=== PATIENT | female | born 1960 | race Caucasian/White ===

== ENCOUNTER → 2016-09-24 09:59 | Day surgery (SDC) | payer BC ==
[~2016-09-24 09:59] MED LIST: Acetaminophen ADULT LIQ* 650 MG/20.3 ML UDC ONE; Buffered Lidocaine 1% SYRIN* 3 ML/SYR SYRINGE INTRADERM ONE; Dexamethasone IV* 4 MG/ML 1 ML (4 MG) ONE; DiMENhydriNATE IV* 50 MG/ML VIAL IV PUSH PRN; Lidocaine 1% MPF wEPI 200,000* 30 ML SDV ONE; Lidocaine 2% PF* 5 ML VIAL ONE; Lidocaine 2% W/EPI 1:100,000* 20 ML MDV ONE; Lidocaine 4% TOPICAL* 50 ML TOP.SOLN ONE; Ondansetron INJ* 2 MG/ML VIAL ONE; Oxymetazoline 0.05% NASAL SPR* 15 ML BTL ONE; Propofol* 10 MG/ML 20 ML BTL IV PUSH ONE; fentaNYL* 50 MCG/ML 2 ML VIAL (100 MCG VIAL) IV PRN; fentaNYL* 50 MCG/ML 2 ML VIAL (100 MCG VIAL) ONE
[2016-09-24 14:35] VITALS: BP 126/77
--- NOTE | 2016-09-25 02:49 | OP ---
DATE OF OPERATION: 09/24/16 - [facility] DATE OF : 58 SURGEON: Parag Oenal MD ANESTHESIOLOGIST: Alexander Sim MD ANESTHESIA: General laryngeal mask airway anesthesia. PRE-OP DIAGNOSIS: Chronic pansinusitis. POST-OP DIAGNOSIS: Chronic pansinusitis. OPERATIVE PROCEDURE: Bilateral functional endoscopic sinus surgery with frontal sinusotomy, maxillary antrostomy and anterior ethmoidectomy. COMPLICATIONS: None. DISPOSITION: Good. SPECIMENS: None. BLOOD LOSS: Minimal. DESCRIPTION OF PROCEDURE: The patient was taken to the operating room, placed in supine position on the operating table, maintained with laryngeal mask airway anesthesia. Nose packed bilaterally with cottonoids impregnated with oxymetazoline and 4% lidocaine. She was turned and draped for the surgery. Using the endoscopes, I injected the middle turbinate, lateral wall, anterior ethmoid and uncinate process with 2% lidocaine with 1:100,000 epinephrine. The middle turbinates were medialized. She was repacked, removed. I initially used the balloon to cannulate the frontal sinus duct and saw the light reflecting to the forehead and used the balloon dilation. I think I got a pre- dilation on the right and a full dilation on the left. The seeker was used find the ostia in the maxillary sinus. The middle turbinate was medialized. The back bitter was used to make a low cut and the middle turbinate was debrided and some thickened tissue around the maxillary ostium was debrided. The curette was used to enter the anterior ethmoid and then the was debrided. Hemostasis was ensured. Stammberger sinus foam was placed lateral to the middle turbinate, this was done bilaterally. The patient tolerated procedures well, no complications, transferred to the recovery room in stable condition. [id number]/CPS #: [id number] MTDD
== END | disposition home or self-care (01) ==
LOC: OR 09:59
PROVIDERS: ATTEND Otolaryngology
DX: J32.4 Chronic pansinusitis (principal); Z87.891 Personal history of nicotine dependence
CPT/HCPCS: A9270-GY; J1100; J2001; J2405; J2704; J3010

== ENCOUNTER 2017-08-04 06:03 | Inpatient (IN) | payer BC ==
[~2017-08-04 06:03] MED LIST changes: -Acetaminophen ADULT LIQ* 650 MG/20.3 ML UDC ONE; +Buffered Lidocaine 0.9% SYRIN* 5 ML/SYR SYRINGE INTRADERM ONE; -Buffered Lidocaine 1% SYRIN* 3 ML/SYR SYRINGE INTRADERM ONE; -Dexamethasone IV* 4 MG/ML 1 ML (4 MG) ONE; -DiMENhydriNATE IV* 50 MG/ML VIAL IV PUSH PRN; -Lidocaine 1% MPF wEPI 200,000* 30 ML SDV ONE; -Lidocaine 2% PF* 5 ML VIAL ONE; -Lidocaine 2% W/EPI 1:100,000* 20 ML MDV ONE; -Lidocaine 4% TOPICAL* 50 ML TOP.SOLN ONE; -Ondansetron INJ* 2 MG/ML VIAL ONE; -Oxymetazoline 0.05% NASAL SPR* 15 ML BTL ONE; -Propofol* 10 MG/ML 20 ML BTL IV PUSH ONE; -fentaNYL* 50 MCG/ML 2 ML VIAL (100 MCG VIAL) IV PRN; -fentaNYL* 50 MCG/ML 2 ML VIAL (100 MCG VIAL) ONE
--- OUTSIDE RECORDS SUMMARY | 2017-08-04 06:08 | XMS REPORT ---
:1960 External Reference #:[id number] Author Organization [employer] Address [address] [place] [address] Phone [phone] Care Team Providers Name Role Phone Teri Andre MD Primary Care Physician Unavailable Payers Type Date Identification Numbers Payment Provider Subscriber Commercial Effective: Policy Number: BS Emilie Bingham 2013 [id number] PayID: [id number] [address] [address] [place] [address] Medigap Part B Effective: 2009 Policy Number: BS Emilie Bingham [id number] Expires: 2013 PayID: [id number] [address] [address] [place] [address] Problems Date Description Provider Status Onset: 07/15/2017 Lumbar spondylolisthesis Ligia Jarquin MD Active Onset: 07/15/2017 Lumbosacral spondylosis without Ligia Jarquin MD Active myelopathy Family History Date Family Member(s) Problem(s) Comments General Diabetes General Heart Disease Father Diabetes Mother Heart Disease Siblings 8 3 alive Social History Type Date Description Comments Marital Status Single Lives With She lives with two grandchildren, her daughter and son-in-law Occupation She works as an [employer] at [employer]. Work Status Currently Working ETOH Use Occasionally consumes alcohol Smoking Patient is a former smoker Recreational Drug Use Denies Drug Use Daily Caffeine Consumes on average 2 cups of regular coffee per day Exercise Type/Frequency Does not exercise Allergies, Adverse Reactions, Alerts Date Description Reaction Status Severity Comments 07/17/2013 Trazodone nightmares, hypnotic active per PCP note hallucsns 06/22/2017 Acetaminophen / nausea, loopy active per PCP note Hydrocodone 06/22/2017 Codeine nausea, loopy active per PCP note 06/22/2017 Oxycodone nausea, loopy active per PCP note 06/22/2017 Percocet nausea, loopy active per PCP note 06/22/2017 Polymyxin B / itchy, painful, red active poer PCP note Trimethoprim eyes 06/23/2017 Wool active 06/23/2017 Adhesives active Medications Medication Date Status Form Strength Qnty SIG Indications Ordering Provider Ibuprofen Active 800mg 1 by mouth Unknown /0000 three times per day Leflunomide Active 10mg 2 tablet Unknown /0000 daily Prednisone Active 10mg 1-2 Unknown /0000 tablets prn Meclizine HCL Active Tablets 12.5mg 12tab 1 tablet Unknown /0000 s every 4h prn dizziness Prochlorperazine Active Tablets 10mg 30tab 1 q6h as Unknown Maleate /0000 s needed Valtrex Active Tablets 1gm 21tab 2 tablets Unknown /0000 s orally 3x a day prn Hydroxychloroquin Active Tablets 200mg 180ta 2 tablets Unknown e /0000 bs a day Lysine Active Tablets 1000mg 1-3 Unknown /0000 tablets every day prn Cyclobenzaprine Active Tablets 10mg 30tab one po tid Unknown HCL /0000 s prn spasm Mometasone Active Suspension 50mcg/Act take 2 Unknown Furoate /0000 sprays per nostril as needed for nasal congestion Clindamycin HCL Active Capsules 300mg 1 tabs by Unknown /0000 mouth 3 times a day Proair HFA Active Aerosol 108(90Bas 2 puffs by Unknown /0000 e) mouth mcg/Act every 4 hours as needed Benadryl Allergy Active Capsules 25mg 1 by mouth Unknown /0000 at bedtime as needed for sleep Acetaminophen ER Active Tablets ER 650mg 1 tab by Unknown /0000 mouth q4 hours as needed pain Glucosamine Active Capsules 1000mg 1 caps qd Unknown /0000 Percocet 08/21 Hx Tablets 5-325mg 60tab take 1-2 /2013 s tabs po Young, - q4-6 hours M.D. 05/31 prn pain /2017 Plaquenil Hx Unknown /0000 - 08/21 Compazine Hx Unknown - 08/21 Flexeril Hx Unknown / - 08/21 Tylenol Hx Unknown / - 08/21 Chlorophyll Hx Tablets 3-0.6mg 2 tablets Unknown orally - with meal 06/01 Medications Administered in Office Medication Date Status Form Strength Qnty SIG Indications Ordering Provider Inj, Administered Injection Clifton S. Regadenoson, 017 Larson, 0.1 MG FACC Technetium TC Administered Injection Clifton S. 99M 017 Larson, DO Tetrofosmin, FACC Per Unit Dose Up To 40 Millicuries Vital Signs Date Vital Result Comment 07/15/2017 Height 63 inches 5'3" Weight 186.00 lb BP Systolic Sitting 158 mmHg BP Diastolic Sitting 80 mmHg Pain Level 3 BMI (Body Mass Index) 32.9 kg/m2 12/27/2013 Height 63 inches 5'3" Weight 170.00 lb Heart Rate 68 /min BP Systolic 116 mmHg BP Diastolic 78 mmHg BMI (Body Mass Index) 30.1 kg/m2 11/22/2013 Height 63 inches 5'3" Weight 170.00 lb Heart Rate 74 /min BP Systolic 132 mmHg BP Diastolic 83 mmHg Pain Level 3 BMI (Body Mass Index) 30.1 kg/m2 10/11/2013 Height 63 inches 5'3" Weight 170.00 lb Body Temperature 96.9 F BMI (Body Mass Index) 30.1 kg/m2 09/11/2013 Height 63 inches 5'3" Weight 172.00 lb Heart Rate 75 /min BP Systolic 117 mmHg BP Diastolic 80 mmHg BMI (Body Mass Index) 30.5 kg/m2 08/21/2013 Height 63 inches 5'3" Weight 172.00 lb Heart Rate 72 /min BP Systolic 129 mmHg BP Diastolic 92 mmHg BMI (Body Mass Index) 30.5 kg/m2 06/21/2013 Height 63 inches 5'3" Weight 176.00 lb Heart Rate 80 /min BP Systolic 149 mmHg BP Diastolic 93 mmHg BMI (Body Mass Index) 31.2 kg/m2 Results Test Date Test Result H/L Range Note Surgical Pathology 08/31/2013 S RUN DATE: 09/04/ <SEE NOTE> 1 1 RUN DATE: 09/04/13 [facility] LAB LIVE PAGE 1 RUN TIME: [address] [place] [id number] Specimen Inquiry Name: LIUDMILA BINGHAM : [address]: Grabiel Roberts MD Acct: [id number] Unit: [id number] AGE: 53 Location: OR Re08/31/13 SEX: F [place] [facility] [place]: [id number] [place]ER[place]: 08/31/13- [facility] DR: Grabiel Roberts MD REQ: [id number] RECD: 08/31/13 STATUS: SOUT _ ORDERED: LEVEL III FINAL DIAGNOSIS Distal biceps sheath left arm, excision: Synovial tissue with acute and chronic inflammation and marked fibrosis with neovascularization. PRE-OPERATIVE DIAGNOSIS Ruptured biceps tendon left elbow. GROSS DESCRIPTION The specimen is received in formalin labeled Liudmila Roberts, Distal Biceps Sheath Left Arm, and consists of two kay-ferrer, irregular rubbery portions of tissue with scant attached fat measuring 1.1 x 0.8 x 0.5 cm. and 1.5 x 0.9 x 0.7 cm. Submitted entirely, one cassette. Signed (signature on file) Herbert Pruitt MD 1516 END OF REPORT * ML=Testing performed at Main Lab DEPARTMENT OF PATHOLOGY, [address] [place] [address] Herbert Pruitt M.D. Director [facility] Permit #[id number] Procedures Date CPT Code Description Status 06/23/2017 57752 Stress Test Completed 06/23/2017 26180 Myocardial Perfusion Imaging Tomographic (Spect) Completed Multiple Studies 08/31/2013 44496 reinsertion ruptured biceps or triceps tendon,distal Completed with or w/o 08/31/2013 06243 reinsertion ruptured biceps or triceps tendon,distal Completed with or w/o 08/31/2013 72537 reinsertion ruptured biceps or triceps tendon,distal Completed with or w/o 06/21/2013 18301 Rad Exam; Hip Unilat Completed 06/21/2013 25682 Rad Exam; Pelvis Completed 05/25/2012 82914 Polysomnography Sleep Staging 4+ Parameters W/Cpap Completed 04/23/2012 83497 Polysomnography Sleep Staging 4+ Parameters Completed 06/03/2010 40597 Carpal Tunnel Release Completed 06/03/2010 02555 Carpal Tunnel Release Completed Encounters Type Date Location Provider CPT E/M Dx Office Visit 12/27/2013 8:[facility] M.D. 49103 727.62 C.[facility]. Office Visit 07/17/2013 8:00a [facility] M.D. 90111 727.62 C.M.A. Office Visit 06/21/2013 10:45a [facility] M.D. 77083 720.2 C.M.A. 719.42 Office Visit 05/29/2010 10:00a [facility] [place], [address] 354.0 Of CMauraML[facility] Fernando Gillis Plan of Care Future Appointment(s):07/25/2017 2:00 pm - [facility] Schedule at [facility]07/15/2017 - Jossesilfahad Jarquin, MDM47.26 Other spondylosis with radiculopathy, lumbar qkcveeW73.16 Spondylolisthesis, lumbar regionFollow up:RV one week postop. Please obtain F/E prior to booking surgery and confirm with me. Patient should have medical clearance and specific instructions from PCP regarding RA medications
[2017-08-04] MEDS ORDERED: ceFAZolin 2 GM PREMIX (*) 2 GM/50 ML BAG IVPB ONE (06:34)
[2017-08-04] MEDS ORDERED: Buffered Lidocaine 0.9% SYRIN* 5 ML/SYR SYRINGE ONE (06:34)
[2017-08-04] MEDS ORDERED: Lidocaine 1% MPF wEPI 200,000* 30 ML SDV ONE ×2 (06:55→07:03)
[2017-08-04] MEDS ORDERED: Thrombin 5,000 UNITS* 1 APPLIC KIT - topical use - TOPICAL ONE (06:55)
[2017-08-04] MEDS ORDERED: Bacitracin IV* 50,000 UNITS INJ ONE ×2 (06:56→11:03)
[2017-08-04] MEDS ORDERED: fentaNYL* 50 MCG/ML 5 ML VIAL (250 MCG VIAL) ONE (07:52)
[2017-08-04] MEDS ORDERED: Midazolam* 1 MG/ML 2 ML VIAL (2 MG) ONE (07:52)
[2017-08-04] MEDS ORDERED: Dexamethasone IV* 4 MG/ML 1 ML (4 MG) ONE (07:57)
[2017-08-04] MEDS ORDERED: Lidocaine 2% PF * 5 ML VIAL ONE (07:57)
[2017-08-04] MEDS ORDERED: Scopolamine 1.5 mg* PATCH ONE (07:57)
[2017-08-04] MEDS ORDERED: Propofol* 10 MG/ML 20 ML BTL IV PUSH ONE (07:57)
[2017-08-04] MEDS ORDERED: Artificial Tear OPHTH.OINT* 3.5 GM ONE (08:10)
[2017-08-04] MEDS ORDERED: EPHEDrine (Pressors)* 50 MG/ML VIAL ONE (08:31)
[2017-08-04] MEDS ORDERED: Naloxone* 0.4 MG/ML 1 ML VIAL IV PRN (10:00)
[2017-08-04] MEDS ORDERED: HYDROcodone/ACETAMIN 5-325 MG* 1 TAB PO PRN (10:00)
[2017-08-04] MEDS ORDERED: DiMENhydriNATE IV* 50 MG/ML VIAL IV PUSH PRN (10:00)
[2017-08-04] MEDS ORDERED: ceFAZolin 1 GM in Dextrose (*) 2 GM/100 ML BAG IVPB ONE (11:43)
[2017-08-04] MEDS ORDERED: Ondansetron INJ* 2 MG/ML VIAL ONE (12:14)
[2017-08-04] MEDS ORDERED: fentaNYL* 50 MCG/ML 2 ML VIAL (100 MCG VIAL) ONE ×2 (12:56→14:46)
[2017-08-04] MEDS ORDERED: DiMENhydriNATE IV* 50 MG/ML VIAL ONE (13:00)
[2017-08-04] MEDS: fentaNYL* 50 MCG/ML 2 ML VIAL (100 MCG VIAL) IV PRN ×3 (13:06→14:46)
[2017-08-04] MEDS ORDERED: HYDROmorphone INJ* 2 MG/ML CARPUJECT SYRINGE ONE (13:37)
--- NOTE | 2017-08-04 13:51 | RAD ---
INDICATION: Left L4-L5 fusion and resection of synovial cyst COMPARISONS: May 04, 2017 TECHNIQUE: Planar and conebeam fluoroscopy was provided for a surgical procedure. Total fluoroscopy time is: 11.2 seconds. The total DLP is 1318.17 FINDINGS: Spot images demonstrate fusion hardware at L4-L5. Tomographic images demonstrate fusion hardware at L4-L5 with graft harvesting of the right iliac wing. A laminectomy defect is noted. IMPRESSION: FLUOROSCOPY WAS PROVIDED FOR A SURGICAL PROCEDURE CPT II Codes: 6045F
--- NOTE | 2017-08-04 13:53 | RAD ---
INDICATION: Lumbar spine surgery. COMPARISON: July 22, 2017 TECHNIQUE: 33.3 seconds fluoroscopy. FINDINGS: Spot images document anterior and posterior L4-L5 fusion. IMPRESSION: Procedural fluoroscopy. CPT II Codes: 6045F
[2017-08-04] MEDS: HYDROmorphone INJ* 1 MG/ML CARPUJECT SYRINGE IV PRN ×5 (13:54→14:41)
[2017-08-04] MEDS: Cyclobenzaprine TAB* 10 MG PO PRN ×2 (14:52→23:49)
[2017-08-04] MEDS ORDERED: Prochlorperazine TAB* 10 MG PO PRN (16:22)
[2017-08-04] MEDS: HYDROcodone/ACETAMIN 5-325 MG* 1 TAB PO PRN ×2 (17:08→22:49)
[2017-08-05] MEDS: Morphine INJ* 2 MG/ML 1 ML CARPUJECT IV PRN ×4 (03:10→20:46)
[2017-08-05] MEDS: HYDROcodone/ACETAMIN 5-325 MG* 1 TAB PO PRN ×4 (05:14→18:19)
[2017-08-05] MEDS: Hydroxychloroquine TAB* 200 MG PO SCH ×2 (07:54→07:57)
[2017-08-05] MEDS: Cyclobenzaprine TAB* 10 MG PO PRN ×2 (07:54→23:38)
--- NOTE | 2017-08-05 08:31 | PN ---
Progress Note - Progress Note Date of Service: 08/05/17 SOAP: Subjective: [S/p L4-5 MIS TLIF left and excision of synovial cyst and L4-5 pedicle screws. POD #1. Feeling well this morning, complains of low back soreness. Left lower extremity pain improved. Eating and drinking without difficulty. Denies headache, nausea and vomiting.] Objective: [ Vital Signs: Temp Pulse Resp BP Pulse Ox 97.5 F 73 20 128/67 100 08/05/17 03:58 08/05/17 03:58 08/05/17 08:15 08/05/17 03:58 08/05/17 03:58 General: Alert and oriented. No distress. Sitting up in bed. Neuro: Motor and sensory intact. Incision: Intact and without swelling. ] Assessment: [Satisfactory post-op course. ] Plan: [1. Discharge home today. 2. Discharge instructions discussed with the patient. ]
--- NOTE | 2017-08-05 10:25 | RAD ---
Indication: Postop L4-L5 fusion August 04, 2017. Comparison: July 22, 2017 Technique: Standing AP and lateral views lumbar sacral spine. Report: Post anterior and posterior L4-L5 fusion. Bone graft metallic markers at the disc space and posterior paired spinal rods and pedicle screws in place. Minimal grade 1 L4-L5 anterolisthesis without significant change. Negative for fracture. Unremarkable paraspinal soft tissue contours. Gallbladder fossa level surgical clips. IMPRESSION: Postsurgical change of anterior and posterior L4-L5 fusion without suspicious finding.
[2017-08-06] MEDS: HYDROcodone/ACETAMIN 5-325 MG* 1 TAB PO PRN ×5 (00:29→21:52)
--- NOTE | 2017-08-06 02:32 | OP ---
DATE OF OPERATION: 08/04/17 - ROOM #333 DATE OF : 58. SURGEON: Ligia Jarquin MD. SUPPORTIVE EMPLOYMENT CASE MANAGER: KEILY Pacheco. ANESTHESIA: General. PRE-OP DIAGNOSES: Degenerative disease, L4-5 and synovial cyst. POST-OPERATIVE DIAGNOSES: Degenerative disease, L4-5 and synovial cyst. OPERATIVE PROCEDURE: The patient underwent left L4-5 minimally invasive transforaminal lumbar interbody fusion with resection of synovial cyst and placement of instrumentation at L4-L5 pedicle screws as well as PEEK interbody spacer, with autologous bone graft from the iliac crest, as well as local bone graft and DBX. Iliac crest bone graft was harvested through a separate skin incision and intraoperative 3D navigation was used. ESTIMATED BLOOD LOSS: 75 cc. COMPLICATIONS: None. SUMMARY: The patient is a very pleasant 57-year-old female with history of rheumatoid arthritis with complaints of severe pain radiating to the left lower extremity. The patient had MRI findings consistent with degenerative disk disease at L4-5 with left lateral synovial cyst at the same level, as well as stenosis. After failing conservative treatment modalities, the patient was offered the option of surgical intervention in the form of left L4-5 TLIF. After all expectations, limitations, possible complications of the procedure had been explained in details with the patient and her significant other with complications included but not limited to bleeding, infection, risk of injury to adjacent structures, coma, paralysis, , need for additional procedures, anesthesia risk, stroke, blindness, cancer, instability, hardware failure, adjacent level disease, pseudoarthrosis, proximal junctional kyphosis, spinal fluid leak, the patient and her significant other were agreeable to proceeding with surgery. Informed consent was obtained. The patient understood that her condition may not improve and in fact may get worse after the surgery and that she may need to have additional procedures in the future. She also understood that the operative plan may be modified according to intraoperative findings and condition. The patient was on immunosuppressive medication, which she elected not to discontinue after recommendation of the primary physician. We had an extended discussion with the patient regarding risks and benefits of continuing preoperatively her biological agents. The patient understood that she may be at high risk for surgical complications such as wound infections, but she elected to continue with the use of her RA medication. DESCRIPTION OF PROCEDURE: The patient was brought to the operating room and was placed under general anesthesia by the anesthesia team. She was carefully positioned prone on the Khadar table and all bony prominences were meticulously padded. Her skin was prepped and draped in a sterile fashion. After appropriate surgical pause and patient identification, a small incision over the right iliac crest was performed with #10 surgical blade. After infiltrating the skin with local anesthetic, a Corex trocar was inserted and iliac crest bone graft was harvested. Through the same skin incision, navigation star was inserted and secured in place. Intraoperative CT imaging was performed with the O-arm and the patient data was transferred to the navigation platform. The projection of the L4- 5 disk space on the skin was marked and after infiltrating the skin with local anesthetic, the skin incision was made with a #10 surgical blade. Over a series of dilators, the METRx tubular retractor was introduced into the field and it was docked over the left L4-5 facet and the lamina-spinous process junction. An intraoperative microscope was brought into the field and after removing a small amount of residual paraspinous musculature, lamina of left at L4 as well as the medial L4- 5 facet was easily identified. A high-speed drill as well as Kerrison punches were used to fashion a hemilaminectomy with facetectomy. Local bone was saved for use in the arthrodesis part of the procedure. The ligamentum flavum was gently reflected and it was found to be strictly adherent with a left synovial cyst as expected from the preoperative MRI. The margins of normal dura were gently identified cephalad and caudal of the lesion and a plane developed between the thecal sac and the synovial cyst. The synovial cyst was then removed in its entirety without need for piecemeal resection and was sent for pathology evaluation. The epidural space was gently prepared and after retracting medially the thecal sac and performing generous foraminotomy, a #15 surgical blade was used to incise the dorsal aspect of the annulus fibrosis. A standard diskectomy was performed with a series of pituitary rongeurs while the disk space was prepared for the fusion part with the use of pituitary rongeurs, disk scrapers, dilators, as well as curettes. After appropriate trialing of the disk space, a 12 x 26 mm Capstone PTC PEEK interbody spacer was inserted after being filled with iliac crest bone graft, DBX, and autograft from the locally harvested bone during the laminectomy and medial facetectomy. Prior to insertion of the interbody spacer, this space was filled with DBX and local autograft. Intraoperative OArm imaging was then obtained and revealed excellent placement of the implant. Under stereotactic navigation and fluoroscopic confirmation, the trajectory of the pedicles were marked on the skin and the skin was incised on the right side. With a #10 surgical blade, I infiltrated the skin with local anesthetic. A navigated drill guide was then used in order to cannulate the pedicles with the use of high torque drill Triton. [employer] instrumentation was used to insert 6.5 x 45 mm Medtronic pedicle screws at L4 and L5 pedicles and two 40 mm rods were inserted through the same incisions and secured with screw head caps. Intraoperative CT confirmed excellent placement of all hardware. After removal of the screw towers and navigation pin, fluoroscopic imaging confirmed excellent placement of all hardware. The wounds were then copiously irrigated and after meticulous hemostasis was confirmed, the wounds were closed by layers with 0 interrupted Vicryl suture to approximate the dorsal fascia, and 2-0 interrupted Vicryl suture to approximate the subcutaneous tissue. The skin was covered with Dermabond and sterile dressings. At the end of the procedure, all counts were reported to be correct. The patient remained hemodynamically stable throughout the case. She was then carefully turned supine, was extubated and was transferred to Recovery in excellent condition. The case was done with assistance of KEILY Pacheco because of the complexity of the case. [id number]/CPS #: [id number] XAVIER
[2017-08-06] MEDS: Morphine INJ* 2 MG/ML 1 ML CARPUJECT IV PRN ×2 (03:06→10:58)
[2017-08-06] MEDS: Hydroxychloroquine TAB* 200 MG PO SCH ×2 (08:56→09:30)
[2017-08-06] MEDS: Cyclobenzaprine TAB* 10 MG PO PRN ×2 (08:58→17:47)
[2017-08-06] MEDS ORDERED: Morphine INJ* 2 MG/ML 1 ML SYRINGE (TWO MG - NEW SYRINGE VERSION) IV PRN (10:03)
--- NOTE | 2017-08-06 10:07 | PN ---
Progress Note - Progress Note Date of Service: 08/06/17 SOAP: Subjective: []POD # 2 Pain remains poorly controlled C/O back > leg pain Objective: []Neuro intact C/O Left > RT back pain Assessment: [] Very slow progress Plan: [] Increase pain meds Ask PT to evaluate
[2017-08-07] MEDS: HYDROcodone/ACETAMIN 5-325 MG* 1 TAB PO PRN ×5 (02:12→20:52)
[2017-08-07] MEDS: Cyclobenzaprine TAB* 10 MG PO PRN ×4 (02:13→22:37)
[2017-08-07] MEDS: Hydroxychloroquine TAB* 200 MG PO SCH (07:44)
[2017-08-07] MEDS ORDERED: Scopolamine PATCH Remove* 1 NOTE MISC PATCH OFF ONE (10:01)
[2017-08-07] MEDS: Morphine INJ* 2 MG/ML 1 ML CARPUJECT IV PRN (11:46)
--- NOTE | 2017-08-07 20:46 | PN ---
Progress Note - Progress Note Date of Service: 08/07/17 SOAP: Subjective: []POD # 3 Cont to complain of severe left leg pain Cont to c/o increased pain with activity Pain partially relieved by medication Has ambulated to door but cant go further Objective: []Neuro intact Dressing dry Assessment: []Persistent post op pain Plan: []Pain poorly refractory to meds Discussed with dr. Valdez Will proceed with additional imaging in AM
[2017-08-08] MEDS: HYDROcodone/ACETAMIN 5-325 MG* 1 TAB PO PRN ×5 (01:47→21:37)
[2017-08-08] MEDS: Morphine INJ* 2 MG/ML 1 ML CARPUJECT IV PRN (07:39)
--- NOTE | 2017-08-08 08:48 | RAD ---
HISTORY: Follow-up spinal fusion COMPARISONS: MRI dated May 04, 2017 TECHNIQUE: Multiple contiguous axial CT scans were obtained of the lumbar spine without intravenous contrast, with coronal and sagittal multiplanar reformations. FINDINGS: SPINAL CANAL: Evaluation of the central canal is limited on CT technique and by streak artifact from fusion hardware; however, there is no obvious canalicular mass or epidural hemorrhage. ALIGNMENT: The alignment is normal. VERTEBRAL BODIES: There is diffuse osteopenia. The patient is status post laminectomy at L4-L5 with bilateral pedicle screws at L4 and L5. There is no appreciable hardware failure or osteolysis. The pedicle screws are contained within the pedicles of the vertebral bodies without foraminal extension. JOINTS: There is facet osteoarthritis most pronounced at L4-L5 and to lesser extent at L5-S1 and L3-L4 MUSCULATURE: Unremarkable INTERVERTEBRAL DISCS: There is diffuse loss of intervertebral disc height throughout the spine. AXIAL IMAGES: T11-T12: There is no osseous neural foraminal narrowing or central canal stenosis. T12-L1: There is no osseous neural foraminal narrowing or central canal stenosis. L1-L2: There is no osseous neural foraminal narrowing or central canal stenosis. L2-L3: There is no osseous neural foraminal narrowing or central canal stenosis. L3-L4: There is a mild disc bulge that is eccentric to the left, likely corresponding to the left-sided disc extrusion noted on previous MRI examination. L4-L5: A laminectomy defect is noted. There is no osseous neural foraminal area. L5-S1: There is mild disc bulge. There is no osseous neural foraminal narrowing or central canal stenosis. SOFT TISSUES: The visualized soft tissues of the abdomen are unremarkable. OTHER: None IMPRESSION: 1. STATUS POST LAMINECTOMY. 2. NO OSSEOUS NEURAL FORAMINAL NARROWING OR CENTRAL CANAL STENOSIS.
[2017-08-08] MEDS: Cyclobenzaprine TAB* 10 MG PO PRN ×2 (09:50→21:37)
[2017-08-08] MEDS: Hydroxychloroquine TAB* 200 MG PO SCH (09:50)
--- NOTE | 2017-08-08 18:44 | PN ---
Progress Note - Progress Note Date of Service: 08/08/17 SOAP: Subjective: []No events ON. Patient feel much better. Preop back and LLE pain resolved. Mild muscle spasms and insisional pain in back. Ambulates well. Tolerates PO well. Voids. Wants to go home. Objective: []VSS Wounds soft, clean, dry AAOx3, ANJALI, CN II-XII grossly intact. Motor 5/5 all extremities. Sensory grossly intact to light touch. Assessment: []57 yo f POD#4 Lt L4-5 MIS TLIF and synovial cyst resection Plan: []CT confirmed excellent position of hardware Encourage ambulation Avoid IV pain meds DC plan in am. Discussed with patient and significant other. Joe Jarquin MD
[2017-08-09] MEDS: HYDROcodone/ACETAMIN 5-325 MG* 1 TAB PO PRN ×3 (02:36→11:10)
[2017-08-09 08:04] VITALS: BP 120/71
[2017-08-09] MEDS: Hydroxychloroquine TAB* 200 MG PO SCH (08:32)
[2017-08-09] MEDS: Cyclobenzaprine TAB* 10 MG PO PRN (11:10)
--- NOTE | 2017-08-11 19:03 | DS ---
Amended report to correct date of discharge. DISCHARGE SUMMARY: DATE OF ADMISSION: 08/05/17 DATE OF DISCHARGE: 08/09/17 PROCEDURE: The patient underwent a left L4-5 minimally invasive transforaminal lumbar interbody fusion with resection of synovial cyst. PRE-OP DIAGNOSIS: Degenerative disk disease, L4-5 with left synovial cyst. POST-OP DIAGNOSIS: Degenerative disk disease, L4-5 with left synovial cyst. HOSPITAL COURSE: The patient is a very pleasant 57-year-old female with complaints of back pain radiating to the left lower extremity. MRI findings were consistent with degenerative disk disease at L4-5 with a left lateral synovial cyst at the same level and stenosis. After failing conservative treatment modalities, she was offered the option of surgical intervention in the form the left L4-5 TLIF and resection of synovial cyst. She underwent the above procedure after understanding the expectations, limitations, and possible complications of the procedure. The patient tolerated the procedure well, was able to be extubated and was transferred to the floor in excellent condition. Postoperatively, the patient did extremely well. Her preoperative left lower extremity pain completely resolved and continued to improve. Due to episodes of significant muscle spasms and difficulty with her pain control due to her multiple allergies in pain medication, the patient was monitored on the floor with physical therapy and pain control. She continued to improve. Her pain and muscle spasms significantly improved and was able to ambulate, tolerate p.o. well and void while her neurological exam was normal. On 08/11/17, she felt that she was able to be discharged home. DISPOSITION: Home. The patient was discharged to home with pain medications, full instructions were given prior to her discharge. [id number]/[facility] #: [id number] XAVIER
== END 2017-08-09 12:00 | disposition home or self-care (01) | DRG 304 ==
LOC: AA 06:03 → SSU 16:35
PROVIDERS: ADMIT Neurological Surgery; ATTEND Neurological Surgery
PROC: 0QB20ZZ Excision of Right Pelvic Bone, Open Approach (ICD-10-PCS; 2017-08-04)
PROC: 0SB20ZZ Excision of Lumbar Vertebral Disc, Open Approach (ICD-10-PCS; 2017-08-04)
PROC: 0SB00ZZ Excision of Lumbar Vertebral Joint, Open Approach (ICD-10-PCS; 2017-08-04)
PROC: 0SG00AJ Fusion of Lumbar Vertebral Joint with Interbody Fusion Device, Posterior Approach, Anterior Column, Open Approach (ICD-10-PCS; principal; 2017-08-04 07:45)
DX: M47.26 Other spondylosis with radiculopathy, lumbar region (principal); J45.909 Unspecified asthma, uncomplicated; M43.16 Spondylolisthesis, lumbar region; M71.38 Other bursal cyst, other site; M06.9 Rheumatoid arthritis, unspecified; Z98.51 Tubal ligation status; M62.830 Muscle spasm of back; Z90.710 Acquired absence of both cervix and uterus; Z88.6 Allergy status to analgesic agent; Z88.8 Allergy status to other drugs, medicaments and biological substances; Z91.048 Other nonmedicinal substance allergy status; Z90.49 Acquired absence of other specified parts of digestive tract; Z83.3 Family history of diabetes mellitus; Z82.49 Family history of ischemic heart disease and other diseases of the circulatory system; Z87.891 Personal history of nicotine dependence; Z72.89 Other problems related to lifestyle
CPT/HCPCS: 72100; 72131; 76001; 87641; 88304; 94760; A9270-GY; C1713; C1821; J0690; J1100; J1170; J1240; J2001; J2250; J2270; J2405; J2704; J3010; Q0164

== ENCOUNTER 2021-03-31 06:24 | Inpatient (IN) ==
[~2021-03-31 06:24] MED LIST changes: -Buffered Lidocaine 0.9% SYRIN* 5 ML/SYR SYRINGE INTRADERM ONE; +Buffered Lidocaine 1% SYRIN 1 ml INTRADERM ONE; +Lactated Ringers 1000 ml BAG 1,000 ML IV SCH
[2021-03-31] MEDS ORDERED: Midazolam 5 mg/5 ml VIAL 1 mg/ml 5 ml VIAL (5 mg) ONE (07:09)
[2021-03-31] MEDS ORDERED: Lidocaine 2% PF 5 ML VIAL ONE ×2 (07:10→07:15)
[2021-03-31] MEDS ORDERED: fentaNYL 100 mcg/2 ml 50 MCG/ML VIAL ONE (07:10)
[2021-03-31] MEDS ORDERED: ROPIVACAINE 5 MG/ML 30 ML BTL (0.5%) ONE (07:10)
[2021-03-31] MEDS ORDERED: Ropivacaine 5 MG/ML 20 ML VIAL 0.5% (100 MG) ONE (07:12)
[2021-03-31] MEDS ORDERED: ceFAZolin 2 GM in NS PREMIX 2 GM/100 ML BAG IVPB ONE (07:12)
[2021-03-31] MEDS ORDERED: Ondansetron 4 mg VIAL 2 MG/ML 2 ml VIAL ONE (07:15)
[2021-03-31] MEDS ORDERED: Dexamethasone IV 4 MG/ML VIAL 1 ml VIAL ONE ×2 (07:15→08:27)
[2021-03-31] MEDS ORDERED: Phenylephrine IV 10 MG/ML 1 ml VIAL ONE (07:15)
[2021-03-31] MEDS ORDERED: Propofol 10 MG/ML 20 ML BTL ONE ×2 (07:16→07:33)
[2021-03-31] MEDS ORDERED: fentaNYL 250 mcg/5 ml 50 MCG/ML 5 ml VIAL (250 MCG) ONE (07:31)
[2021-03-31] MEDS ORDERED: Levalbuterol 0.63MG/3ML NEB UNIT OF USE INH PRN (08:55)
[2021-03-31] MEDS ORDERED: Ondansetron 4 mg VIAL 2 MG/ML 2 ml VIAL IV PRN ×2 (08:55→08:59)
[2021-03-31] MEDS ORDERED: fentaNYL 100 mcg/2 ml 50 MCG/ML VIAL IV PRN (08:55)
[2021-03-31] MEDS ORDERED: HYDROmorphone 1 MG/1 ML SYRINGE IV PRN (08:55)
[2021-03-31] MEDS ORDERED: Naloxone 0.4 mg VIAL 0.4 mg/ml 1 ml VIAL IV PRN (08:55)
[2021-03-31] MEDS ORDERED: diPHENhydraMINE IV 50 MG/ML 1 ml VIAL (BENADRYL) IV PRN (08:59)
[2021-03-31] MEDS ORDERED: Lactulose 30 ml UDC PO PRN (08:59)
[2021-03-31] MEDS ORDERED: diPHENhydraMINE 25 mg TAB PO PRN (08:59)
[2021-03-31] MEDS ORDERED: Morphine 2 MG/ML SYRINGE IV PRN (08:59)
[2021-03-31] MEDS ORDERED: Magnesium Hydroxide LIQ 30 ML UDC PO PRN (08:59)
[2021-03-31] MEDS ORDERED: Fluticasone NASAL SPRAY 50MCG 16 gm SPRAY BTL BOTH NARES PRN (09:05)
[2021-03-31] MEDS ORDERED: Acetaminophen IV 1 GM/100ML 100 ML IV ONE (09:08)
[2021-03-31] MEDS ORDERED: HYDROmorphone 1 MG/1 ML SYRINGE ONE ×2 (09:20→11:18)
[2021-03-31] MEDS ORDERED: Labetalol IV 5 MG/ML 20 ml VIAL IV PUSH ONE (11:13)
[2021-03-31] MEDS ORDERED: Labetalol IV 5 MG/ML 20 ml VIAL ONE (11:13)
[2021-03-31] MEDS ORDERED: Albuterol HFA INHALER 8 gm MDI INH PRN (12:31)
[2021-03-31] MEDS: Magnesium Hydroxide LIQ 30 ML UDC PO SCH ×2 (12:35→22:16)
[2021-03-31] MEDS: Vitamin THERAPEUTIC TAB PO SCH (12:35)
[2021-03-31] MEDS: Lactated Ringers 1000 ml BAG 1,000 ML IV SCH ×2 (12:40→22:19)
[2021-03-31] MEDS: ceFAZolin 1 GM ADVAN 1 GM in NS 0.9% 50 ML 50 ML IVPB SCH (16:22)
[2021-04-01] MEDS: ceFAZolin 1 GM ADVAN 1 GM in NS 0.9% 50 ML 50 ML IVPB SCH ×2 (01:14→08:36)
[2021-04-01] MEDS: Vitamin THERAPEUTIC TAB PO SCH (07:13)
[2021-04-01] MEDS: Magnesium Hydroxide LIQ 30 ML UDC PO SCH (07:15)
[2021-04-01 07:23] LABS: Hematocrit 30 % (35-47); Hemoglobin 10.3 g/dL (12.0-16.0); Mean Platelet Volume 6.9 fL (7.4-10.4); Platelet Count 262 10^3/uL (150-450)
[2021-04-01 07:44] LABS: Calcium 8.5 mg/dL (8.6-10.3); Potassium 3.8 mmol/L (3.5-5.0)
[2021-04-01 12:01] VITALS: BP 158/82
== END 2021-04-01 15:30 | disposition home or self-care (01) | DRG 302 ==
LOC: AA 06:24 → SSU 12:05
PROVIDERS: ADMIT Orthopaedic Surgery Adult Reconstructive Orthopaedic Surgery; ATTEND Orthopaedic Surgery Adult Reconstructive Orthopaedic Surgery